=== PATIENT | female | born 1970 | race Two or more races ===

== ENCOUNTER 2016-07-19 04:51 | Emergency (ER) | payer OTHER ==
[~2016-07-19] VITALS: Ht 162.6 cm; Wt 81.5 kg
[2016-07-19 04:53] VITALS: Ht 162.6 cm; Wt 81.5 kg
[2016-07-19] MEDS ORDERED: HC1C30 TOP (06:16)
[2016-07-19] MEDS ORDERED: BEN25 PO (06:16)
--- NOTE | 2016-07-19 06:42 | ERD ---
ER Documentation Chief Complaint Date/Time DATE: 07/19/16 TIME: 06:39 Chief Complaint scaterred body rashes x 2 days HPI This patient is a 46-year-old female with past medical history of type 2 diabetes presenting to the emergency department for rash to her right upper extremity which began 2 days ago. The patient reports pruritus. She states her symptoms are worsening. She denies pain. Symptoms are currently mild in severity. The patient is taken no medication for relief of symptoms. Patient denies fevers, chills, discharge, or other symptoms at this time. ROS All systems reviewed and are negative except as per history of present illness. Medications Home Meds Active Scripts Diphenhydramine Hcl* (Benadryl*) 25 Mg Cap, 25 MG PO Q6, #30 CAP Prov:FARSHAD CARD PA-C 07/19/16 Hydrocortisone* Topical (Hydrocortisone* Topical) 1%-28.35 Gm Cream..g., 1 APPLIC TOP Q6 Y for ITCHING, #1 TUB Prov:FARSHAD CARD PA-C 07/19/16 Allergies Allergies: Coded Allergies: Penicillins (Verified Allergy, Unknown, 07/19/16) PMhx/Soc History of Surgery: No Anesthesia Reaction: No Hx Neurological Disorder: No Hx Respiratory Disorders: No Hx Cardiac Disorders: No Hx Psychiatric Problems: No Hx Miscellaneous Medical Probl: Yes (DM) Hx Alcohol Use: No Hx Substance Use: No Hx Tobacco Use: No Smoking Status: Never smoker FmHx Noncontributory for chief complaint Physical Exam Vitals Vital Signs Date Time Temp Pulse Resp B/P Pulse Ox O2 Delivery O2 Flow Rate FiO2 07/19/16 04:53 97.8 90 20 157/88 100 Physical Exam Const: The patient is resting comfortably in no acute distress. Head: Atraumatic Eyes: Normal Conjunctiva ENT: Normal External Ears, Nose and Mouth. Neck: Full range of motion..~ No meningismus. Resp: Clear to auscultation bilaterally Cardio: Regular rate and rhythm, no murmurs Abd: Soft, non tender, non distended. Normal bowel sounds Skin: The patient has what appears to be 2 insect bites to the right upper extremity which are healing well. There is no discharge, significant erythema, warmth, induration, or vesicles present. Back: No midline or flank tenderness Ext: No cyanosis, or edema Neur: Awake and alert Psych: Normal Mood and Affect Procedures/MDM 46-year-old female presents secondary to complaints to pruritus of the right upper extremity after sustaining what appears to be insect bites. On physical examination the patient's blood pressure slightly elevated. Patient's blood pressure was elevated (>120/80) but appears stable without evidence of hypertension emergency or urgency. The patient was counseled about the risks of hypertension and urged to pursue outpatient monitoring and therapy within a week with their primary care physician. Examination of the skin reveals 2 erythematous insect bites of the right upper extremity without signs of infection. The remainder of the skin exam of the rest of the body is normal. I have low suspicion for cellulitis, deep tissue infection, septicemia, or other emergent conditions. The patient is stable for outpatient management with prescriptions for Benadryl and topical hydrocortisone. The patient's questions and concerns of been addressed. The patient was given strict ER return precautions. Departure Diagnosis: Primary Impression: Rash and other nonspecific skin eruption Condition: Fair Patient Instructions: Self-Care for Skin Rashes Referrals: [facility] YOU HAVE RECEIVED A MEDICAL SCREENING EXAM AND THE RESULTS INDICATE THAT YOU DO NOT HAVE A CONDITION THAT REQUIRES URGENT TREATMENT IN THE EMERGENCY DEPARTMENT. FURTHER EVALUATION AND TREATMENT OF YOUR CONDITION CAN WAIT UNTIL YOU ARE SEEN IN YOUR DOCTORS OFFICE WITHIN THE NEXT 1-2 DAYS. IT IS YOUR RESPONSIBILITY TO MAKE AN APPOINTMENT FOR FOLOW-UP CARE. IF YOU HAVE A PRIMARY DOCTOR --you should call your primary doctor and schedule an appointment IF YOU DO NOT HAVE A PRIMARY DOCTOR YOU CAN CALL OUR PHYSICIAN REFERRAL HOTLINE AT IF YOU CAN NOT AFFORD TO SEE A PHYSICIAN YOU CAN CHOSE FROM THE FOLLOWING [facility] [id number] [facility] [id number] [facility] [facility] [address] [facility] [address] [facility] [address] [facility]. [facility]. [address] Additional Instructions: No mas mejor en 2-3 hernandez, regresar. Mas peor en 24 horas, regresear rapidamente. Ir a doctor primario in 5-7 hernandez. Usar instrucciones cuando gisele medicamento. No manejar despues de gisele Benadryl. FARSHAD CARD PA-C Jul 19, 2016 06:42
== END 2016-07-19 06:25 | disposition home or self-care (01) ==
LOC: FTE 04:51
DX: R21 Rash and other nonspecific skin eruption (principal); E11.9 Type 2 diabetes mellitus without complications
CPT/HCPCS: 99283

== ENCOUNTER 2016-07-25 18:12 | Emergency (ER) | payer OTHER ==
[~2016-07-25] VITALS: Ht 162.6 cm; Wt 80.0 kg
[~2016-07-25 18:12] MED LIST: BEN25 PO; HC1C30 TOP
[2016-07-25 18:34] VITALS: Ht 162.6 cm; Wt 80.0 kg
[2016-07-25] MEDS ORDERED: SULF1TAB31 PO (18:59)
[2016-07-25] MEDS ORDERED: HYDR-3011 PO (19:01)
--- NOTE | 2016-07-25 19:13 | ERD ---
ER Documentation Chief Complaint Date/Time DATE: 07/25/16 TIME: 19:10 Chief Complaint RIGHT ARM RASH, RETURNING TO ED DUE TO NO RELIEF WITH PRESCRIBED MEDS HPI 46-year-old female presents in emergency department for complaint of rash in upper extremities and lower extremities for 1 week now, was seen here in emergency department was given Benadryl and hydrocortisone, only mild relief. Patient continues to have itching. Patient denies any ear or chills. Patient denies any open wounds. Patient denies any lip swelling, tongue swelling or stridor. Patient denies any shortness of breath or wheezing. ROS All systems reviewed and are negative except as per history of present illness. Medications Home Meds Active Scripts Hydroxyzine Hcl* (Hydroxyzine Hcl*) 25 Mg Tablet, 25 MG PO Q8H Y for ITCHING, # 30 TAB Prov:DON CERVANTES NP 07/25/16 Sulfamethoxazole/Trimethoprim* (Bactrim Ds* Tablet) 1 Each Tablet, 1 TAB PO BID , #10 TAB Prov:DON CERVANTES NP 07/25/16 Diphenhydramine Hcl* (Benadryl*) 25 Mg Cap, 25 MG PO Q6, #30 CAP Prov:FARSHAD CARD PA-C 07/19/16 Hydrocortisone* Topical (Hydrocortisone* Topical) 1%-28.35 Gm Cream..g., 1 APPLIC TOP Q6 Y for ITCHING, #1 TUB Prov:FARSHAD CARD PA-C 07/19/16 Allergies Allergies: Coded Allergies: Penicillins (Verified Allergy, Unknown, 07/19/16) PMhx/Soc History of Surgery: No Anesthesia Reaction: No Hx Neurological Disorder: No Hx Respiratory Disorders: No Hx Cardiac Disorders: No Hx Psychiatric Problems: No Hx Miscellaneous Medical Probl: Yes (DM) Hx Alcohol Use: No Hx Substance Use: No Hx Tobacco Use: No FmHx Family History: No coronary disease, No diabetes, No other Physical Exam Vitals Vital Signs Date Time Temp Pulse Resp B/P Pulse Ox O2 Delivery O2 Flow Rate FiO2 07/25/16 18:34 98.0 91 17 120/79 99 Physical Exam GENERAL: The patient is well developed and appropriate for usual state of health, in no apparent distress. HEENT: Atraumatic. Ears: Normal tympanic membrane, no erythema or bulging. No ear canal swelling. No ear discharge. Nose: normal nasal turbinates, no erythema or swelling. Normal nasal discharge. Throat: oropharynx clear. No tonsillar swelling or tonsillar exudates. No lymphadenopathy. no lip swelling and swelling or stridor noted. CHEST: Clear to auscultation bilaterally. There are no rales, wheezes or rhonchi. HEART: Regular rate and rhythm. No murmurs, clicks, rubs or gallops. No S3 or S4. ABDOMEN: Soft, nontender and nondistended. Good bowel sounds. No rebound or guarding. No gross peritonitis. No gross organomegaly or masses. No Guthrie sign or McBurney point tenderness. BACK: No midline or flank tenderness. EXTREMITIES: Equal pulses bilaterally. There is no peripheral clubbing, cyanosis or edema. No focal swelling or erythema. Full range of motion. Grossly neurovascularly intact. NEURO: Alert and oriented. Cranial nerves 2-12 intact. Motor strength in all 4 extremities with 5/5 strength. Sensation grossly intact. Normal speech and gait. SKIN: Papular rash noted in the upper shoulders and lower extremities, with mild erythema and the right upper arm from excoriation. There is no apparent rash or petechia. The skin is warm and dry. HEMATOLOGIC AND LYMPHATIC: There is no evidence of excessive bruising or lymphedema. No gross cervical, axillary, or inguinal lymphadenopathy. Procedures/MDM Medical decision making: Patient's rash is nonspecific, possible insect bites, right upper arm has erythema possibly infected insect bites, can be also some form dermatitis. Nonspecific at this time, not emergencies at this time, patient needs to see a honey extractor specialist for further evaluation of symptoms. No symptoms of any coagulopathies. Patient was given a prescription for hydroxyzine, Bactrim, is advised to follow-up with primary care doctor in 1- 2 days, see honey extractor specialist. Patient was advised to return to emergency department for any worsening symptoms Departure Diagnosis: Primary Impression: Rash Condition: Stable Patient Instructions: Self-Care for Skin Rashes Additional Instructions: see optimization specialist for further eval of rash DON CERVANTES NP Jul 25, 2016 19:13
== END 2016-07-25 19:06 | disposition home or self-care (01) ==
LOC: FTE 18:12 → E/R 19:06
DX: R21 Rash and other nonspecific skin eruption (principal); E11.9 Type 2 diabetes mellitus without complications
CPT/HCPCS: 99284

== ENCOUNTER 2016-12-21 23:04 | Emergency (ER) | payer OTHER ==
[~2016-12-21] VITALS: Ht 170.2 cm; Wt 77.2 kg
[~2016-12-21 23:04] MED LIST changes: +HYDR-3011 PO; +SULF1TAB31 PO
[2016-12-21 23:07] VITALS: Ht 170.2 cm; Wt 77.2 kg
--- NOTE | 2016-12-21 23:29 | ERA ---
ER Documentation Chief Complaint Date/Time DATE: 12/21/16 TIME: 23:28 Chief Complaint c/o HGB 8 HPI The patient is a 46-year-old female, presenting to the ER because of low hemoglobin of 8. She was sent to the ER by her physician from a clinic where she was seen 2 days ago. She denies syncope, near syncope, neck pain, chest pain, abdominal pain, vomiting or dysuria. She complains of heavy menstrual periods for the last couple days. She does not smoke nor drink Past medical history: Diabetes mellitus, dyslipidemia Past surgical history: None ROS All systems reviewed and are negative except as per history of present illness. Medications Home Meds Active Scripts Ferrous Sulfate* (Ferrous Sulfate*) 325 Mg Tabec, 325 MG PO BID, #30 TAB Prov:CURTIS CHRISTIAN MD 12/22/16 Hydroxyzine Hcl* (Hydroxyzine Hcl*) 25 Mg Tablet, 25 MG PO Q8H Y for ITCHING, # 30 TAB Prov:DON CERVANTES APPLICATION SECURITY ENGINEER 07/25/16 Sulfamethoxazole/Trimethoprim* (Bactrim Ds* Tablet) 1 Each Tablet, 1 TAB PO BID , #10 TAB Prov:DON CERVANTES APPLICATION SECURITY ENGINEER 07/25/16 Diphenhydramine Hcl* (Benadryl*) 25 Mg Cap, 25 MG PO Q6, #30 CAP Prov:FARSHAD CARD PA-C 07/19/16 Hydrocortisone* Topical (Hydrocortisone* Topical) 1%-28.35 Gm Cream..g., 1 APPLIC TOP Q6 Y for ITCHING, #1 TUB Prov:FARSHAD CARD PA-C 07/19/16 Allergies Allergies: Coded Allergies: Penicillins (Verified Allergy, Unknown, 07/19/16) PMhx/Soc History of Surgery: No Anesthesia Reaction: No Hx Neurological Disorder: No Hx Respiratory Disorders: No Hx Cardiac Disorders: No Hx Psychiatric Problems: No Hx Miscellaneous Medical Probl: Yes (DM) Hx Alcohol Use: No Hx Substance Use: No Hx Tobacco Use: No Physical Exam Vitals Vital Signs Date Time Temp Pulse Resp B/P Pulse Ox O2 Delivery O2 Flow Rate FiO2 12/21/16 23:07 98.2 96 18 141/81 99 Physical Exam Const: No acute distress. Head: Atraumatic. Eyes: Normal Conjunctiva. ENT: Normal External Ears, Nose and Mouth. Neck: Full range of motion. No meningismus. Resp: Clear to auscultation bilaterally. Cardio: Regular rate and rhythm. Abd: Soft, non distended, normal bowel sounds, non tender. Skin: No petechiae or rashes. Back: No midline or flank tenderness. Ext: No cyanosis, or edema. Neur: Awake and alert. No focal deficit Psych: Normal Mood and Affect. Result Diagram: 12/21/16 0059 12/21/16 0059 Results 24 hrs Laboratory Tests Test 12/21/16 00:59 White Blood Count 7.910^3/ul Red Blood Count 4.9110^6/ul Hemoglobin 9.3g/dl Hematocrit 32.5% Mean Corpuscular Volume 66.2fl Mean Corpuscular Hemoglobin 18.9pg Mean Corpuscular Hemoglobin Concent 28.6g/dl Red Cell Distribution Width 16.5% Platelet Count 81596^3/UL Mean Platelet Volume 9.7fl Neutrophils % 54.7% Lymphocytes % 32.7% Monocytes % 9.2% Eosinophils % 2.7% Basophils % 0.6% Nucleated Red Blood Cells % 0.0/100WBC Neutrophils # 4.310^3/ul Lymphocytes # 2.610^3/ul Monocytes # 0.710^3/ul Eosinophils # 0.210^3/ul Basophils # 0.110^3/ul Nucleated Red Blood Cells # 0.010^3/ul Prothrombin Time 12.5Sec Prothrombin Time Ratio 1.0 INR International Normalized Ratio 0.93 Activated Partial Thromboplast Time 27.8Sec Sodium Level 136mmol/L Potassium Level 3.4mmol/L Chloride Level 103mmol/L Carbon Dioxide Level 27mmol/L Anion Gap 9 Blood Urea Nitrogen 12mg/dl Creatinine 0.42mg/dl Glucose Level 190mg/dl Calcium Level 9.5mg/dl Total Bilirubin 0.4mg/dl Direct Bilirubin 0.00mg/dl Indirect Bilirubin 0.4mg/dl Aspartate Amino Transf (AST/SGOT) 17IU/L Alanine Aminotransferase (ALT/SGPT) 22IU/L Alkaline Phosphatase 83IU/L Total Protein 7.6g/dl Albumin 4.0g/dl Globulin 3.60g/dl Albumin/Globulin Ratio 1.11 Procedures/MDM MEDICAL MAKING DECISION: The patient is a 46-year-old female, presenting with anemia most likely due to iron deficient anemia and menorrhagia, acute hypokalemia. She was treated with potassium chloride 20 mg p.o. for acute hypokalemia. She is stable for outpatient follow-up The differential diagnoses considered include but are not limited to gastritis, peptic ulcer disease, esophageal varices, Amie-Vogel tear, carcinoma, polyp, hemorrhoid, fissure, diverticulosis, angiodysplasia. Departure Diagnosis: Primary Impression: Anemia Additional Impression: Hypokalemia Condition: Good Comments She was discharged with ferrous sulfate X I discussed the findings with the patient. I advised the patient to follow-up with the primary physician and manager parking in about 2-3 days, sooner if needed and return if any concern. CURTIS CHRISTIAN MD Dec 21, 2016 23:29
[2016-12-22 00:22] LABS: ABNORMAL IP MESSAGE 1; BASOPHIL # 0.1 10^3/ul (0.0-0.1); BASOPHILS % 0.6 % (0.0-2.0); EOSINOPHILS # 0.2 10^3/ul (0.0-0.5); EOSINOPHILS % 2.7 % (0.0-7.0); HEMATOCRIT 32.5 % (37.0-47.0); HEMOGLOBIN 9.3 g/dl (12.0-16.0); LYMPHOCYTES # 2.6 10^3/ul (0.8-2.9); LYMPHOCYTES % 32.7 % (15.0-51.0); MEAN CORPUSCULAR HEMOGLOBIN 18.9 pg (29.0-33.0); MEAN CORPUSCULAR HGB CONC 28.6 g/dl (32.0-37.0); MEAN CORPUSCULAR VOLUME 66.2 fl (82.0-101.0); MEAN PLATELET VOLUME 9.7 fl (7.4-10.4); MONOCYTE # 0.7 10^3/ul (0.3-0.9); MONOCYTES % 9.2 % (0.0-11.0); NEUTROPHIL # 4.3 10^3/ul (1.6-7.5); NEUTROPHILS % 54.7 % (39.0-77.0); PLATELET COUNT 384 10^3/UL (140-415); RED BLOOD COUNT 4.91 10^6/ul (4.20-5.40); RED CELL DISTRIBUTION WIDTH 16.5 % (11.5-14.5); WHITE BLOOD COUNT 7.9 10^3/ul (4.8-10.8)
[2016-12-22 00:27] LABS: POSITIVE DIFF @See below
[2016-12-22 00:39] LABS: INR 0.93; PARTIAL THROMBOPLASTIN TIME 27.8 Sec (25.0-35.0); PROTIME 12.5 Sec (12.2-14.2)
[2016-12-22 00:40] LABS: ALBUMIN/GLOBULIN RATIO 1.11; BILIRUBIN,INDIRECT 0.4 mg/dl (0-1.1); BILIRUBIN,TOTAL 0.4 mg/dl (0.2-1.3); CALCIUM 9.5 mg/dl (8.4-10.2); CREATININE 0.42 mg/dl (0.44-1.00); POTASSIUM 3.4 mmol/L (3.5-5.1); TOTAL PROTEIN 7.6 g/dl (6.1-8.1)
[2016-12-22] MEDS ORDERED: FER325 PO (01:09)
[2016-12-22] MEDS ORDERED: GLIP-95 PO (01:22)
[2016-12-22] MEDS ORDERED: INSU200I SQ (01:22)
[2016-12-22] MEDS ORDERED: METF500T4 PO (01:22)
[2016-12-22] MEDS ORDERED: MTF1000T PO (01:23)
[2016-12-22 01:40] VITALS: BP 115/80; PULSE 80; RESP 16; TEMP 98.3
== END 2016-12-22 01:53 | disposition home or self-care (01) ==
LOC: E/R 23:04
DX: D64.9 Anemia, unspecified (principal); E87.6 Hypokalemia; E11.9 Type 2 diabetes mellitus without complications
CPT/HCPCS: 80053; 84703; 85025; 85610; 85730; 86850; 86900; 86901; 99283